=== PATIENT | male | born 1995 | race Caucasian/White ===

== ENCOUNTER 2017-03-22 02:20 | Emergency (ER) | payer SELFPAY ==
[~2017-03-22] VITALS: Ht 182.9 cm; Wt 61.0 kg
[2017-03-22 02:27] VITALS: TEMP 36.8; Ht 182.9 cm; Wt 61.0 kg
[2017-03-22 02:33] VITALS: O2SAT 99
--- NOTE | 2017-03-22 02:49 | EMERGENCY ROOM VISIT NOTE ---
History Report prepared by Magdalena: Petra Padilla Under the Supervision of: Dr. Kristen Velazquez D.O. 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 The patient presents to the ED by EMS. He was found sleeping on a bench by police with no sober friends to take him home. He admits to drinking more alcohol than he normally does. He denies using any other drugs. He denies having any pain or injury. He denies any medical problems. He is not on any medications. Source of History: patient, EMS Onset: QUALITY ASSURANCE TECHNICIAN Position: other (global) Quality: other (alcohol intoxication) Timing: other (persistent) Note: Pt denies any pain or injury. Review of Systems See HPI for pertinent positives & negatives. A total of 10 systems reviewed and were otherwise negative. Past Medical & Surgical Medical Problems: (1) No chronic problems Family History No pertinent family history stated. Social History Alcohol Use: occasionally Current/Historical Medications No Active Prescriptions or Reported Meds Allergies Coded Allergies: No Known Allergies (Unverified , 03/22/17) Physical Exam Vital Signs Date Time Temp Pulse Resp B/P (MAP) Pulse Ox O2 Delivery O2 Flow Rate FiO2 03/22/17 03:01 115 16 130/88 98 Room Air 03/22/17 02:33 99 Room Air 03/22/17 02:29 129 03/22/17 02:27 36.8 123 18 135/70 99 Room Air 03/22/17 02:27 99 Room Air Physical Exam GENERAL: smells of alcohol, alert, well appearing, well nourished, no distress, non-toxic EYE EXAM: normal conjunctiva, PERRL and EOM's grossly intact OROPHARYNX: no exudate, no erythema, lips, buccal mucosa, and tongue normal and mucous membranes are dry NECK: supple, no nuchal rigidity, no adenopathy, non-tender LUNGS: Clear to auscultation. Normal chest wall mechanics HEART: no murmurs, S1 normal and S2 normal ABDOMEN: abdomen soft, non-tender, normo-active bowel sounds, no masses, no rebound or guarding. BACK: Back is symmetrical on inspection and there is no deformity, no midline tenderness, no CVA tenderness. SKIN: no rashes and no bruising UPPER EXTREMITIES: upper extremities are grossly normal. LOWER EXTREMITIES: No pitting edema. NEURO EXAM: Normal sensorium, cranial nerves II-XII grossly intact, normal speech, no gross weakness of arms, no gross weakness of legs. Medical Decision & Procedures Laboratory Results 03/22/17 02:33 Test 03/22/17 02:33 Anion Gap 8.0 mmol/L (3-11) Est Creatinine Clear Calc Drug Dose 114.6 ml/min Estimated GFR () 142.3 Estimated GFR (Non- 122.8 BUN/Creatinine Ratio 6.9 (10-20) Calcium Level 8.9 mg/dl (8.5-10.1) Ethyl Alcohol mg/dL 231.0 mg/dl (0-3) Laboratory results per my review. ED Course 0225: The patient was evaluated in room A11B. A complete history and physical exam was performed. 0245: I reevaluated the patient. He is awake and talking. There is a sober alliance party there who is willing to take care of the patient. I discussed the results. They verbalized agreement of the treatment plan. He was discharged home with his sober friend. Medical Decision Differential diagnosis: Etiologies such as alcohol intoxication, toxicologic, infection, hypoglycemia, electrolyte abnormalities, cardiac sources, intracerebral event, neurologic, as well as others were entertained. Patient well-appearing here, awake and talking, able to stand and walk under his own power. Patient with a sober ride at bedside. No history of trauma, no physical evidence of trauma, no reported trauma from patient or friends who showed appointment with him previously in the evening. Discussed with patient adequate hydration, symptoms to watch and return for, he verbalized understanding was agreeable with plan. Sober friend aware of all this as well as other precautions regarding alcohol intoxication. Patient's tachycardia likely due to dehydration and anxiety regarding the situation. Medication Reconcilliation Current Medication List: was personally reviewed by me Blood Pressure Screening Patient's blood pressure: Elevated blood pressure Blood pressure disposition: Elevated BP felt to be situational Impression Primary Impression: Alcoholic intoxication Scribe Attestation The scribe's documentation has been prepared under my direction and personally reviewed by me in its entirety. I confirm that the note above accurately reflects all work, treatment, procedures, and medical decision making performed by me. Departure Information Dispostion Home / Self-Care Prescriptions No Active Prescriptions or Reported Meds Patient Instructions My [facility] Additional Instructions Please drink responsibly and a safe place. Do not drink and drive. Please drink plenty of water. If you have any new or concerning symptoms, please return the emergency room. Problem Qualifiers Primary Impression: Alcoholic intoxication Complication of substance-induced condition: uncomplicated Qualified Codes: F10.920 - Alcohol use, unspecified with intoxication, uncomplicated
[2017-03-22 03:01] VITALS: BP 130/88; PULSE 115; O2SAT 98
[2017-03-22 03:09] LABS: BUN/CREATININE RATIO 6.9 (10-20); CALCIUM 8.9 mg/dl (8.5-10.1); CREATININE 0.88 mg/dl (0.60-1.40); POTASSIUM 3.3 mmol/L (3.5-5.1)
== END 2017-03-22 03:10 | disposition home or self-care (01) ==
LOC: EDBD 02:20 → C.EDA 02:22
DX: F10.920 Alcohol use, unspecified with intoxication, uncomplicated (principal); Y90.7 Blood alcohol level of 200-239 mg/100 ml